=== PATIENT | male | born 1955 | race Caucasian/White ===

== ENCOUNTER 2025-02-12 10:24 | Inpatient (IN) | payer MEDICARE, SELFPAY ==
[2025-02-12] VITALS (23 sets, daily range): BP systolic 100–151; BP diastolic 54–106; PULSE 71–138; RESP 14–27; TEMP 36.4–37.1; O2SAT 91–98; BMI 41.1
--- NOTE | ~2025-02-12 | XR_ITS ---
EXAMINATION: XR chest 1V portable COMPARISON: No comparisons available. HISTORY: defib fired FINDINGS: Mild pulmonary venous congestion. No pneumothorax. Mild cardiomegaly. Mediastinal and hilar contours are within normal limits. Bony thorax no acute abnormality. Miscellaneous: Left pacemaker. Impression: Mild CHF Reviewed, dictated and finalized at location P. Impression: Mild CHF
--- NOTE | 2025-02-12 10:30 | ECG_ITS ---
Test Date: 2025-02-12 10:29:28 Measurements Intervals [place] Rate: 156 P: 0 MO: 0 QRS: -45 QRSD: 93 T: 83 QT: 274 QTc: 442 Interpretive Statements ATRIAL FIBRILLATION WITH RAPID VENTRICULAR RESPONSE WITH ABERRANT CONDUCTION OR VENTRICULAR PREMATURE COMPLEXES INFERIOR INFARCT, AGE INDETERMINATE BORDERLINE ST-T WAVE ABNORMALITY- HIGH LATERAL LEADS BASELINE ARTIFACT- I, II, AVR, AVL ABNORMAL ECG No previous ECG available for comparison Electronically Signed On 02-12-2025 10:59:02 CDT by Yandel Ulloa D.O.
[2025-02-12] MEDS: LACTATED RINGERS 1,000 ML 999 ML IV CONT (10:43)
--- NOTE | 2025-02-12 10:45 | ED.GENADULT ---
HPI - General Adult General Chief complaint: Arrhythmia/Palpitations Stated complaint: defib fire x 3?, afib RVR Time Seen by Provider: 02/12/25 10:30 History of Present Illness HPI narrative: 70-year-old male that is a poor historian presenting to the emergency department for evaluation for suspicion that his defibrillator may have fired. Patient reports that he was [place] the court [place] and walking out of the bathroom and felt 3 shocks to his neck. Patient did not fall to the ground. Patient had no loss of consciousness. Patient denies any current chest pain or shortness of breath. Patient is unsure if he has a history of AFib, patient does not think he takes any blood thinners. Patient reports he was just admitted at [facility] approximately 2 weeks ago but is unsure of why he was admitted there. Patient states he does have a prior history of an GA maybe 4 or 5 years ago and was also care for at [facility] Related Data Home Medications ?Medication ?Instructions ?Recorded ?Confirmed ?Last Taken ?Type amiodarone 200 mg tablet 200 mg PO Q24H 02/12/25 02/12/25 Unknown History apixaban 5 mg tablet (Eliquis) 5 mg PO Q12H 02/12/25 02/12/25 Unknown History atorvastatin 40 mg tablet 40 mg PO HS 02/12/25 02/12/25 Unknown History carvedilol 6.25 mg tablet 6.25 mg PO Q12H 02/12/25 02/12/25 Unknown History furosemide 20 mg tablet 20 mg PO 1700 02/12/25 02/12/25 Unknown History furosemide 40 mg tablet 40 mg PO DAILY 02/12/25 02/12/25 Unknown History glimepiride 2 mg tablet 2 mg PO DAILY 02/12/25 02/12/25 Unknown History hydralazine 10 mg tablet 10 mg PO DAILY 02/12/25 02/12/25 Unknown History isosorbide dinitrate 5 mg tablet 5 mg PO DAILY 02/12/25 02/12/25 Unknown History losartan 100 mg tablet 100 mg PO DAILY 02/12/25 02/12/25 Unknown History metformin 500 mg tablet 500 mg PO BID 02/12/25 02/12/25 Unknown History potassium chloride 20 mEq 20 meq PO DAILY 02/12/25 02/12/25 Unknown History tablet,extended release(part/cryst) Allergies Allergy/AdvReac Type Severity Reaction Status Date / Time No Known Allergies Allergy Verified 02/12/25 17:17 Review of Systems Review of Systems: All systems reviewed & are unremarkable except as noted in HPI and below PMFSH Past Medical History Medical History DM2 (diabetes mellitus, type 2) Sleep apnea HLD (hyperlipidemia) HTN (hypertension) Right leg DVT Presence of cardiac defibrillator Biotronik Myocardial infarction Surgical History Surgical History History of orthopedic surgery ORIF, LLE Family History Family History Sibling Acute myocardial infarction Father Chronic obstructive pulmonary disease Cancer Mother Diabetes mellitus Social History Social History Smoking status: Never smoker Second hand tobacco smoke exposure: Yes Alcohol intake: never Substance use type: marijuana Lack of Transportation: No Lack of Food: Often True Current Housing: I Have Housing Concerned About Future Housing: No Difficulty Paying Gas/Electric Bills: No Difficulty Paying for Meds: No Currently Unemployed: No Education: High School Diploma/GED Difficulty w/ Childcare or Family Care: No Spiritual care concerns: No Exam Narrative: APPEARANCE: Well appearing, no pain, no distress, well-nourished. HEAD: normocephalic, atraumatic. EYES: PERRLA/EOMI, conjunctivae clear. NOSE: Normal no drainage EARS:TMS clear with good light reflex. THROAT: Pharynx clear, no exudate. NECK: Supple. No adenopathy, no masses. RESPIRATORY: Airway patent, respirations nonlabored. Clear to auscultation bilaterally, no rales, rhonchi, wheezing. CARDIOVASCULAR: AFib with RVR ABDOMINAL: Soft, nontender, nondistended, normal bowel sounds MUSCULOSKELETAL: Moves all extremities. Lower extremity edema NEURO: Alert. Cranial nerves II through XII intact. Grossly intact SKIN: Warm, dry. Normal Color Course Vital Signs Vital signs: Vital Signs Temperature 98.7 F 02/12/25 10:23 Pulse Rate 138 H 02/12/25 10:23 Respiratory Rate 16 02/12/25 10:23 Blood Pressure 151/101 H 02/12/25 10:23 Pulse Oximetry 94 02/12/25 10:23 Oxygen Delivery Room Air 02/12/25 10:23 Temperature 98.0 F 02/12/25 17:17 Pulse Rate 106 H 02/12/25 18:00 Respiratory Rate 16 02/12/25 17:17 Blood Pressure 146/89 H 02/12/25 17:17 Pulse Oximetry 98 02/12/25 17:17 Oxygen Delivery Room Air 02/12/25 10:23 Medical Decision Making MDM Narrative Medical decision making narrative: 70-year-old male present to the emergency department for evaluation after his defibrillator fired 3 times. Patient does have a Biotronik defibrillator and it was interrogated and showed that his heart rate was AFib with RVR and a rate of 220 this is above his standard threshold of 214 and patient did receive 3 shocks. Interrogation showed no evidence of VFib or Vtach. Upon arrival emergency department patient heart rates in the 140s. Patient was treated with a dose of IV metoprolol and ultimately started on Cardizem bolus and Cardizem infusion. Patient's magnesium was low at 1.3 and he was treated with 2 g of IV Mag. Patient was a poor historian and was unaware of any medications he was taking. Patient is supposedly on amiodarone and Eliquis in addition to carvedilol and Lasix. This was discovered after receiving his meds from his pharmacy At time of re-evaluation patient states he does feel improved patient is still in AFib but is rate controlled with a rate of 89 while on Cardizem. Critical Care Procedure Note Authorized and Performed by: Zen Kapoor Total critical care time: Approximately 36 minutes Due to a high probability of clinically significant, life threatening deterioration, the patient required my highest level of preparedness to intervene emergently and I personally spent this critical care time directly and personally managing the patient. This critical care time included obtaining a history; examining the patient; pulse oximetry; ordering and review of studies; arranging urgent treatment with development of a management plan; evaluation of patient's response to treatment; frequent reassessment; and, discussions with other providers. This critical care time was performed to assess and manage the high probability of imminent, life-threatening deterioration that could result in multi-organ failure. It was exclusive of separately billable procedures and treating other patients and teaching time. Please see MDM section and the rest of the note for further information on patient assessment and treatment. Differential Diagnosis Differential Diagnosis: AFib with RVR, V-tach, VFib, tachycardia, back pain, medication noncompliance Vital Signs Vital Signs: Vital Signs Temperature 98.7 F 02/12/25 10:23 Pulse Rate 138 H 02/12/25 10:23 Respiratory Rate 16 02/12/25 10:23 Blood Pressure 151/101 H 02/12/25 10:23 Pulse Oximetry 94 02/12/25 10:23 Oxygen Delivery Room Air 02/12/25 10:23 Temperature 98.0 F 02/12/25 17:17 Pulse Rate 106 H 02/12/25 18:00 Respiratory Rate 16 02/12/25 17:17 Blood Pressure 146/89 H 02/12/25 17:17 Pulse Oximetry 98 02/12/25 17:17 Oxygen Delivery Room Air 02/12/25 10:23 Lab Data Lab results reviewed: Yes I reviewed the patient's lab results. 02/12/25 10:53 02/12/25 11:20 Labs: Lab Results 02/12/25 02/12/25 02/12/25 Range/Units 10:52 10:53 11:20 WBC 9.0 (4.5-10.0) K/mm3 RBC 4.54 L (4.6-6.20) M/mm3 Hgb 13.2 L (14.0-18.0) g/dL Hct 40.9 L (42.0-52.0) % MCV 90.1 (80-100) fl MCH 29.1 (26-34) pg MCHC 32.3 (32-36) g/dl RDW 15.0 H (11.5-14.5) % Plt Count 185 (150-375) k/mm3 MPV 10.4 (7.4-10.4) fl Immature Gran % (Auto) 0.2 (0-0.5) % Neut % (Auto) 69.8 (45.5-73.1) % Lymph % (Auto) 17.8 L (18.3-44.2) % [place] % (Auto) 8.2 (2.6-8.5) % Eos % (Auto) 3.8 (0-4.4) % Baso % (Auto) 0.2 (0.2-1.2) % Lymph # (Auto) 1.60 (0.9-3.2) K/mm3 [place] # (Auto) 0.7 H (0.1-0.6) K/mm3 Eos # (Auto) 0.3 (0-0.3) K/mm3 Baso # (Auto) 0.0 (0.0-0.1) K/mm3 Abs Immat Gran (auto) 0.02 (0.00-0.031) K/mm3 Absolute Neuts (auto) 6.3 (1.3-6.7) K/mm3 Absolute Nucleated RBC 0.000 (0.0-0.012) K/mm3 Nucleated RBC % 0.0 (0.0-0.2) % PT 15.3 H (11.1-14.7) Seconds INR 1.2 APTT 27.6 (22.3-36.8) Seconds Sodium 136 L (137-145) mmol/L Potassium 4.0 (3.4-5.0) mmol/L Chloride 101 (98-107) mmol/L Carbon Dioxide 27 (22-30) mmol/L Anion Gap 8 (4-12) mmol/L BUN 30 H (9-20) mg/dL Creatinine 1.23 (0.7-1.3) mg/dL Estim Creat Clear Calc 71 ml/min Estimated GFR 59 (59 - ) Glucose 142 H (65-110) mg/dL Calcium 9.2 (8.4-10.2) mg/dL Magnesium 1.3 L (1.6-2.3) mg/dL Total Bilirubin 1.2 (0.2-1.3) mg/dL AST 25 (17-59) U/L ALT 21 (6-50) U/L Alkaline Phosphatase 58 (38-126) U/L NT-Pro-B Natriuret Pep 9390 H (19.9-100) pg/mL Total Protein 7.2 (6.3-8.2) g/dL Albumin 4.1 (3.5-5.1) g/dL TSH (Reflex) 4.240 (0.465-4.68) uIU/mL Free T4 1.74 (0.78-2.19) ng/dL Total T3 1.17 (0.82-1.58) NG/ML Imaging Data Radiologist's impression: Impressions Chest X-Ray 02/12/25 10:39 Impression: Mild CHF ECG Data EKG #1: EKG Interpretation: tachycardia, atrial fibrillation, non-specific ST changes, normal QT and NL axis Critical Care Time Critical Care Time Critical Care Time: Yes Total Critical Care Time: 35 Discharge Plan Discharge Clinical Impression: Atrial fibrillation with rapid ventricular response Patient Disposition: Still a Patient Condition: Serious
[2025-02-12] MEDS: METOPROLOL TARTRATE INJ 5 MG/5 ML VIAL IV PUSH (10:49)
[2025-02-12 10:57] LABS: Hematocrit 40.9 % (42.0-52.0); Hemoglobin 13.2 g/dL (14.0-18.0); Immature Granulocyte Percent A 0.2 % (0-0.5); Lymphocytes Absolute Auto 1.60 K/mm3 (0.9-3.2); Mean Corpuscular HGB Conc 32.3 g/dl (32-36); Mean Corpuscular Hemoglobin 29.1 pg (26-34); Mean Corpuscular Volume 90.1 fl (80-100); Nucleated Red Blood Cells Absolute Auto 0.000 K/mm3 (0.0-0.012); Nucleated Red Blood Cells Perc 0.0 % (0.0-0.2); Platelet Count Result 185 k/mm3 (150-375); Red Blood Count 4.54 M/mm3 (4.6-6.20); White Blood Count 9.0 K/mm3 (4.5-10.0)
--- NOTE | 2025-02-12 11:01 | PC.NURSE ---
Medical records request faxed to [facility] nursing HS, John.
[2025-02-12 11:12] LABS: INR 1.2; Prothrombin Time 15.3 Seconds (11.1-14.7)
[2025-02-12 11:13] LABS: Partial Thromboplastin Time 27.6 Seconds (22.3-36.8)
[2025-02-12 11:44] LABS: Thyroid Stimulating Hormone Reflex 4.240 uIU/mL (0.465-4.68)
[2025-02-12 11:48] LABS: Alanine Aminotransferase 21 U/L (6-50); Albumin Level 4.1 g/dL (3.5-5.1); Alkaline Phosphatase 58 U/L (38-126); Anion Gap 8 mmol/L (4-12); Aspartate Amino Transferase 25 U/L (17-59); Bilirubin,Total 1.2 mg/dL (0.2-1.3); Blood Urea Nitrogen 30 mg/dL (9-20); Calcium 9.2 mg/dL (8.4-10.2); Carbon Dioxide 27 mmol/L (22-30); Chloride 101 mmol/L (98-107); Estimated CRCL calculation 71 ml/min; Estimated Glomerular Filt Rate 59; Glucose 142 mg/dL (65-110); Magnesium 1.3 mg/dL (1.6-2.3); Potassium 4.0 mmol/L (3.4-5.0); Sodium 136 mmol/L (137-145); Total Protein 7.2 g/dL (6.3-8.2)
[2025-02-12 11:53] LABS: NT Pro B Type Natriuretic Pept 9390 pg/mL (19.9-100)
[2025-02-12] MEDS: MAGNESIUM SULF 2 GM/WATER 50ML 2 GM/50 ML BAG IVPB (12:09)
[2025-02-12] MEDS: FUROSEMIDE INJ 40 MG/4 ML VIAL IV PUSH (12:10)
[2025-02-12 12:14] LABS: Free T4 Free Thyroxine Reflex 1.74 ng/dL (0.78-2.19)
--- NOTE | 2025-02-12 12:55 | PC.NURSE ---
Medical records have not been received from [facility]. left for HS to call back.
[2025-02-12 12:58] LABS: Total Triiodothyronine (T3) 1.17 NG/ML (0.82-1.58)
[2025-02-12] MEDS: dilTIAZem 100 MG/100 ML 100 MG/100 ML BAG IV CONT (13:11)
--- NOTE | 2025-02-12 14:51 | PC.NURSE ---
Nurse at Dr. Chowdary (patient's PCP) able to see an uploaded external document from a tractor trailer truck driver at [facility] ([phone]). Document was a Biotronik device check.
--- NOTE | 2025-02-12 17:15 | ADMGEN ---
Addendum entered by Tamara Luu RN 02/12/25 18:03: Report received from YOSEF Nolen @ [id number] Original Note: This patient, Austin Dominguez, was admitted to IMU Room 205-02. Patient/family oriented to hospital policies and general routines including ID bracelet, bed and alarms, visiting hours, pain management, procedures, bathroom and other care routines, personal items, smoking policy, room service/diet, and visiting hours. Information on how to activate the Rapid Response Team has been discussed. Patient/Family are encouraged to report perceived risks to care and to ask questions if they do not understand what they are told or what they should do.
--- NOTE | 2025-02-12 17:39 | P.HP_ITS ---
H&P: HPI History of Present Illness Date/Time: 02/12/25 17:39 Chief Complaint: Pop in Chest Narrative: 70 y/o M with PMH of cardiac defibrillator, myocardial infarction, and dysrhythmia but has here with suspected firing of defibrillator. The patient presents here via EMS on 02/12 for further evaluation of possible dysrhythmia at and suspected firing of defibrillator. The patient reports he was in the bathroom when he felt a pop/shock in his chest x3. He denies any accompanying loss of consciousness, chest pain, shortness of breath, palpitations, nausea, vomiting, diaphoresis or subsequent fall (son was able to help him before he fell). He reports he has a history of AFib and discharge of his defibrillator. Believes it last discharged 2 years ago. Patient reports he is on anticoagulation. Does not believe he follows with a healthcare management consultant regularly. He does report he was recently admitted to [facility] approximately 2-3 weeks ago, however he is unsure why he was admitted. He does report a cardiac history significant for myocardial infarction approximately 4-5 years ago, treated at [facility]. Patient is very poor historian, no further history available. Initial VS at presentation: 98.7? F, HR 138, RR 16, 151/101, and 94% on RA. ED workup showed: No leukocytosis, hemoglobin 13.2, INR 1.2, creatinine 1.23 and GFR 59, glucose 142, magnesium 1.3, BNP 9390, TSH within normal limits. No previous lab work available for comparison. CXR showed mild CHF. EKG showed AFib with RVR with a brain conduction or ventricular premature complexes, inferior infarct age indeterminate, borderline ST-T with abnormality high lateral leads. Review of Systems Review of Systems: All systems reviewed & are unremarkable except as noted in HPI and below PMFSH Past Medical History Medical History DM2 (diabetes mellitus, type 2) Sleep apnea HLD (hyperlipidemia) HTN (hypertension) Right leg DVT Presence of cardiac defibrillator Biotronik Myocardial infarction Surgical History Surgical History History of orthopedic surgery ORIF, LLE Family History Family History Sibling Acute myocardial infarction Father Chronic obstructive pulmonary disease Cancer Mother Diabetes mellitus Social History Social History Smoking status: Never smoker Second hand tobacco smoke exposure: Yes Alcohol intake: never Substance use type: marijuana Lack of Transportation: No Lack of Food: Often True Current Housing: I Have Housing Concerned About Future Housing: No Difficulty Paying Gas/Electric Bills: No Difficulty Paying for Meds: No Currently Unemployed: No Education: High School Diploma/GED Difficulty w/ Childcare or Family Care: No Spiritual care concerns: No Meds Home Medications and Allergies Home Medications ?Medication ?Instructions ?Recorded ?Confirmed ?Type amiodarone 200 mg tablet 200 mg PO Q24H 02/12/2501/17 History apixaban 5 mg tablet (Eliquis) 5 mg PO Q12H 02/12/25 1 History atorvastatin 40 mg tablet 40 mg PO HS 02/12/25 5 History carvedilol 6.25 mg tablet 6.25 mg PO Q12H 02/12/25 History furosemide 20 mg tablet 20 mg PO 1700 02/12/2502/12 History furosemide 40 mg tablet 40 mg PO DAILY 02/12/2501/17 History glimepiride 2 mg tablet 2 mg PO DAILY 02/12/2502/12 History hydralazine 10 mg tablet 10 mg PO DAILY 02/12/2501/17 History isosorbide dinitrate 5 mg tablet 5 mg PO DAILY 5 02/12/25 History losartan 100 mg tablet 100 mg PO DAILY 02/12/25 History metformin 500 mg tablet 500 mg PO BID 02/12/2502/12 History potassium chloride 20 mEq 20 meq PO DAILY 02/12/25 History tablet,extended release(part/cryst) Allergies Allergy/AdvReac Type Severity Reaction Status Date / Time No Known Allergies Allergy Verified 02/12/25 17:17 Vital Signs Vital Signs - 24 hr 02/12/25 10:23 02/12/25 10:49 02/12/25 10:50 Temperature 98.7 F Pulse Rate 138 H 130 H 131 H Respiratory Rate 16 23 H Blood Pressure 151/101 H 115/95 H Pulse Oximetry 94 91 Oxygen Delivery Room Air 02/12/25 11:01 02/12/25 11:16 02/12/25 11:22 Temperature Pulse Rate 122 H 113 H 124 H Respiratory Rate 19 22 H 21 H Blood Pressure 131/99 H 118/102 H 132/102 H Pulse Oximetry 95 Oxygen Delivery 02/12/25 11:47 02/12/25 12:01 02/12/25 12:46 Temperature Pulse Rate 123 H 118 H 120 H Respiratory Rate 25 H 19 19 Blood Pressure 119/93 H 141/98 H 140/102 H Pulse Oximetry 93 94 Oxygen Delivery 02/12/25 13:11 02/12/25 13:45 02/12/25 13:46 Temperature Pulse Rate 129 H 93 91 Respiratory Rate 18 27 H Blood Pressure 138/106 H 122/88 Pulse Oximetry 94 97 Oxygen Delivery 02/12/25 15:40 02/12/25 17:17 Temperature 98.0 F Pulse Rate 93 98 Respiratory Rate 24 H 16 Blood Pressure 136/72 146/89 H Pulse Oximetry 98 Oxygen Delivery Exam Const: General: comfortable and no acute distress Other: , male, older appearing than stated age, obese body habitus HENMT: Face/Nose/Sinus: Normal nares present Mouth: Yes moist mucous membranes Eyes: General: appearance normal, both eyes and all related structures Sclera: sclerae normal Pupils: Equal, round and reactive pupils present EOM: EOMs intact bilaterally Resp: Auscultation: clear to auscultation bilaterally Other: Mild tachypnea without accessory muscle use, worsens with conversation. Cardio: Rate: regular rate Rhythm: abnormal rhythm Other: Irregular rhythm consistent with AFib, no appreciable murmur. GI: Other: Abdomen soft, nondistended, nontender. Normoactive bowel sounds in all quadrants. Skin: Other: Mild erythema to the right distal calf/ankle. Associated heat when compared to the left lower extremity. Extrem: General: normal exam except as noted (See skin exam) Other: +1 nonpitting edema to bilateral lower e xtremities, symmetric Psych: Mental Status: mental status grossly normal Affect: normal affect Other: Fair insight and judgment H&P: Results Labs Labs: Short CBC 02/12/25 Range/Units 10:53 WBC 9.0 (4.5-10.0) K/mm3 Hgb 13.2 L (14.0-18.0) g/dL Hct 40.9 L (42.0-52.0) % Plt Count 185 (150-375) k/mm3 [facility] 02/12/25 11:20 Sodium 136 L Potassium 4.0 Chloride 101 Carbon Dioxide 27 BUN 30 H Creatinine 1.23 Glucose 142 H Calcium 9.2 Liver Function 02/12/25 Range/Units 11:20 Total Bilirubin 1.2 (0.2-1.3) mg/dL AST 25 (17-59) U/L ALT 21 (6-50) U/L Alkaline Phosphatase 58 (38-126) U/L Albumin 4.1 (3.5-5.1) g/dL Assessment and Plan Assessment and plan (1) Atrial fibrillation with rapid ventricular response: Code(s): I48.91 - Unspecified atrial fibrillation Status: Acute Assessment and Plan: Patient has reported history of atrial fibrillation on Coreg, amiodarone, and Eliquis. Here for further evaluation after he felt popping/shock sensation in his chest x3 this morning. Defibrillator (YottaaroniEvgen) interrogated in the emergency department. Report showed that the patient was in AFib with RVR, rate 220. Patient has standard threshold of 214. Three shocks were administered. Did not show any evidence of VFib or V-tach. - home amiodarone held, Coreg continued. Given metoprolol IV in the ED with no response. Has been subsequently started on a Cardizem drip with IV push x1. Heart rate improved from the 130s to 90s. Will continue diltiazem gtt at this time. - TSH evaluated in the emergency department, within normal limits - patient reports recent admission at [facility] 2 weeks ago, awaiting records as he believes he was admitted for cardiac issues. If no echo performed there, will need during this admission. - magnesium mildly depleted at 1.3 upon admission, given 2G IVPB. Continue to trend. - cardiology consulted, awaiting recs - telemetry monitoring (2) Defibrillator discharge: Code(s): Z45.02 - Encounter for adjustment and management of automatic implantable cardiac defibrillator Status: Acute Assessment and Plan: Defibrillator (Biotronik) interrogated in the emergency department on 02/12. Patient was in AFib RVR with a rate around 220 which is above his threshold of 214. Three shocks were administered. - cardiology consulted - telemetry monitoring (3) Cellulitis of right leg: Code(s): L03.115 - Cellulitis of right lower limb Status: Acute Assessment and Plan: Erythema noted to the distal right lower extremity at the distal calf/ankle. No asymmetric swelling appreciated. Patient is on anticoagulation decreasing concern for DVT. - start cefazolin (4) DM2 (diabetes mellitus, type 2): Qualifiers: Diabetes mellitus complication status: without complication Diabetes mellitus marine oil terminal superintendent insulin use: without mcc use Qualified Code(s): E11.9 - Type 2 diabetes mellitus without complications Code(s): E11.9 - Type 2 diabetes mellitus without complications Status: Chronic Assessment and Plan: History of type 2 diabetes not on insulin. Initial glucose upon admission was 142. - hypoglycemia protocol - POC blood glucose ACHS - home medication: Hold metformin in case of need for contrast. Continue glimepiride. - correct regimen ordered - high dose TIDWM, based off BMI - A1C ordered, none on file (5) HTN (hypertension): Qualifiers: Hypertension type: primary hypertension Qualified Code(s): I10 - Essential (primary) hypertension Code(s): I10 - Essential (primary) hypertension Status: Chronic Assessment and Plan: - chronic, currently 146/89, stable. - continue home medications: Losartan, Imdur, hydralazine, Coreg - monitor (6) HLD (hyperlipidemia): Qualifiers: Hyperlipidemia type: unspecified Qualified Code(s): E78.5 - Hyperlipidemia, unspecified Code(s): E78.5 - Hyperlipidemia, unspecified Status: Chronic Assessment and Plan: - continue atorvastatin 40 mg HS Plan Diet: Heart healthy GI Prophylaxis: N/a DVT Prophylaxis: Eliquis IV fluids: None Lines/Tubes: Peripheral IV Code Status: Full code Quality VTE Prophylaxis VTE prophylaxis: pharmacologic ordered Hospitalist [facility] Advance Care Plan I have confirmed that the patient's Advanced Care Plan is present, code status is documented, or surrogate decision maker is listed in patient medical record.: Yes Medication Reconciliation I have utilized all available resources to obtain, update and review the pat ients current medications (includes all prescriptions, OTC, herbals, cannabis, and nutritional supplements).: Yes
--- NOTE | 2025-02-12 18:59 | PC.NURSE ---
On 02/12/25, the student, [ Nilo oLng], provided care and completed [facility] documentation on this patient. I have reviewed the student's documentation and agree with the findings.
[2025-02-12] MEDS: FUROSEMIDE 20 MG TABLET PO (19:05)
[2025-02-12] MEDS: APIXABAN 5 MG TABLET PO (20:26)
[2025-02-12] MEDS: ATORVASTATIN 40 MG TABLET PO (20:26)
[2025-02-12] MEDS: ceFAZolin 1 GM in SODIUM CHLORIDE 0.9% IV 50 ML 100 ML IVPB (22:49)
[2025-02-13] VITALS (23 sets, daily range): BP systolic 99–137; BP diastolic 53–87; PULSE 70–89; RESP 14–22; TEMP 36.6–37.1; O2SAT 95–98
[2025-02-13 04:15] LABS: Hematocrit 36.8 % (42.0-52.0); Hemoglobin 11.8 g/dL (14.0-18.0); Immature Granulocyte Percent A 0.2 % (0-0.5); Lymphocytes Absolute Auto 1.54 K/mm3 (0.9-3.2); Mean Corpuscular HGB Conc 32.1 g/dl (32-36); Mean Corpuscular Hemoglobin 29.1 pg (26-34); Mean Corpuscular Volume 90.6 fl (80-100); Nucleated Red Blood Cells Absolute Auto 0.000 K/mm3 (0.0-0.012); Nucleated Red Blood Cells Perc 0.0 % (0.0-0.2); Platelet Count Result 163 k/mm3 (150-375); Red Blood Count 4.06 M/mm3 (4.6-6.20); White Blood Count 6.3 K/mm3 (4.5-10.0)
[2025-02-13 04:26] LABS: Hemoglobin A1C 6.4 % (<5.7)
[2025-02-13 04:30] LABS: Anion Gap 10 mmol/L (4-12); Blood Urea Nitrogen 29 mg/dL (9-20); Calcium 8.8 mg/dL (8.4-10.2); Carbon Dioxide 28 mmol/L (22-30); Chloride 98 mmol/L (98-107); Estimated CRCL calculation 62 ml/min; Estimated Glomerular Filt Rate 51; Glucose 127 mg/dL (65-110); Magnesium 1.7 mg/dL (1.6-2.3); Potassium 4.0 mmol/L (3.4-5.0); Sodium 136 mmol/L (137-145)
[2025-02-13] MEDS: ceFAZolin 1 GM in SODIUM CHLORIDE 0.9% IV 50 ML 100 ML IVPB ×3 (05:05→22:00)
[2025-02-13] MEDS: dilTIAZem 100 MG/100 ML 100 MG/100 ML BAG IV CONT (05:06)
[2025-02-13] MEDS: GLIMEPIRIDE 2 MG TABLET PO (08:16)
[2025-02-13] MEDS: FUROSEMIDE 40 MG TABLET PO (08:16)
[2025-02-13] MEDS: APIXABAN 5 MG TABLET PO ×2 (08:16→20:34)
[2025-02-13] MEDS: ISOSORBIDE DINITRATE 5 MG TABLET PO (08:16)
[2025-02-13] MEDS: POTASSIUM CHLORIDE 20 MEQ ER TABLET PO (08:16)
[2025-02-13] MEDS: LOSARTAN POTASSIUM 100 MG TABLET PO (08:17)
--- NOTE | 2025-02-13 09:15 | P.CONCA_ITS ---
Assessment and Plan Assessment and plan (1) Atrial fibrillation with rapid ventricular response: Code(s): I48.91 - Unspecified atrial fibrillation Status: Acute Assessment and Plan: * noted to be in afib with rvr rate of 156 bpm on arrival to ER * this appears to be paroxysmal in nature based on device interrogation * patient was seen at OSH and recently started on amiodarone and Eliquis, but non-compliant with medications * he was started on IV cardizem and rate has improved. * will stop his cardizem drip and increase his home coreg dose from 6.25 mg BID to 12.5 mg BID * His Mag was 1.3 on admission and is currently being replaced and would replete to keep >2 * His potassium in wnl * TSH wnl * Will plan to reload with IV amiodarone while in the hospital and will need to stress compliance with medications at discharge * may benefit from OP EPS consult (2) Defibrillator discharge: Code(s): Z45.02 - Encounter for adjustment and management of automatic implantable cardiac defibrillator Status: Acute Assessment and Plan: * has single chamber biotronik ICD in place * appears he was defibrillated for afib with rvr * will review his device settings with Dr. Sosa. * Appears this is not the first time patient has been shocked for atrial fibrillation * as mentioned earlier may benefit from EPS consult and upgraded device (3) HTN (hypertension): Qualifiers: Hypertension type: primary hypertension Qualified Code(s): I10 - Essential (primary) hypertension Code(s): I10 - Essential (primary) hypertension Status: Chronic Assessment and Plan: * Blood pressure with reasonable control at this time * continue coreg 12.5 mg BID and losartan 100 mg daily (4) HLD (hyperlipidemia): Qualifiers: Hyperlipidemia type: unspecified Qualified Code(s): E78.5 - Hyperlipidemia, unspecified Code(s): E78.5 - Hyperlipidemia, unspecified Status: Chronic Assessment and Plan: * continue atorvastatin 40 mg daily (5) DM2 (diabetes mellitus, type 2): Qualifiers: Diabetes mellitus complication status: without complication Diabetes mellitus correction insulin use: without correction use Qualified Code(s): E11.9 - Type 2 diabetes mellitus without complications Code(s): E11.9 - Type 2 diabetes mellitus without complications Status: Chronic Assessment and Plan: * glycemic control as per primary team (6) Cellulitis of right leg: Code(s): L03.115 - Cellulitis of right lower limb Status: Acute Assessment and Plan: * started on abx as per primary team * concern discoloration may be secondary to venous stasis changes as well (7) DVT (deep venous thrombosis): Code(s): I82.409 - Acute embolism and thrombosis of unspecified deep veins of unspecified lower extremity Status: Acute Assessment and Plan: * per chart review noted to have acute DVT of rt SFA/popliteal vein on recent visit to [facility] * continue Eliquis 5 mg BID for AC (8) ARIANA (obstructive sleep apnea): Code(s): G47.33 - Obstructive sleep apnea (adult) (pediatric) Status: Acute Assessment and Plan: * needs compliance with CPAP (9) Cardiomyopathy: Code(s): I42.9 - Cardiomyopathy, unspecified Status: Acute Assessment and Plan: * EF of 40% per echo 02/02/25 at [facility] * this is NICMP as had [facility] in 2023 with no CAD noted * continue coreg 12.5mg BID, losartan 100 mg daily and lasix 40 mg daily * monitor closely for any volume overload * has Biotronik ICD in place History of Present Illness History of Present Illness Consult date/time: 02/13/25 09:15 Requesting physician: Kandace Pittman APRN Consult reason: atrial fibrillation Reason For Visit: afib with rvr Narrative: Austin Dominguez is a 70 y.o. male with a PMH of atrial fibrillation, cardiomyopathy s/p ICD, DVT, DM, ARIANA, HTN and obesity who presented to the ER after being shocked by his ICD. Patient reports he was at the court house with his son and went into the restroom. He states he suddenly felt dizzy and as if he was going to pass out. He had his son and security lower him to the ground. He was shocked by his ICD at that time, but patient does not recall that. He denies any chest pain, shortness of breath, or palpitations prior. It appears he has had similar episodes and was recently at [facility] where he was started on amiodarone and Eliquis. Patient admits he is not compliant with medications and misses them a few times a week. He also reports pain and redness in the RLE and appears he had thrombus in the Rt SFA/popliteal vein on admission at [facility]. Review of Systems 2 Review of Systems: All systems reviewed & are unremarkable except as noted in HPI and below [facility] Past Medical History Medical History DM2 (diabetes mellitus, type 2) Sleep apnea HLD (hyperlipidemia) HTN (hypertension) Right leg DVT Presence of cardiac defibrillator Biotronik Myocardial infarction Surgical History Surgical History History of orthopedic surgery ORIF, LLE Family History Family History Sibling Acute myocardial infarction Father Chronic obstructive pulmonary disease Cancer Mother Diabetes mellitus Social History Social History Smoking status: Never smoker Second hand tobacco smoke exposure: Yes Alcohol intake: never Substance use type: marijuana Lack of Transportation: No Lack of Food: Often True Current Housing: I Have Housing Concerned About Future Housing: No Difficulty Paying Gas/Electric Bills: No Difficulty Paying for Meds: No Currently Unemployed: No Education: High School Diploma/GED Difficulty w/ Childcare or Family Care: No Spiritual care concerns: No Meds Home Medications and Allergies Home Medications ?Medication ?Instructions ?Recorded ?Confirmed ?Type amiodarone 200 mg tablet 200 mg PO Q24H 02/12/2501/17 History apixaban 5 mg tablet (Eliquis) 5 mg PO Q12H 02/12/25 1 History atorvastatin 40 mg tablet 40 mg PO HS 02/12/25 5 History carvedilol 6.25 mg tablet 6.25 mg PO Q12H 02/12/25 History furosemide 20 mg tablet 20 mg PO 1700 02/12/2502/12 History furosemide 40 mg tablet 40 mg PO DAILY 02/12/2501/17 History glimepiride 2 mg tablet 2 mg PO DAILY 02/12/2502/12 History hydralazine 10 mg tablet 10 mg PO DAILY 02/12/2501/1725 History isosorbide dinitrate 5 mg tablet 5 mg PO DAILY 5 02/12/25 History losartan 100 mg tablet 100 mg PO DAILY 02/12/25 History metformin 500 mg tablet 500 mg PO BID 02/12/2502/12 History potassium chloride 20 mEq 20 meq PO DAILY 02/12/25 History tablet,extended release(part/cryst) Allergies Allergy/AdvReac Type Severity Reaction Status Date / Time No Known Allergies Allergy Verified 02/12/25 17:17 Vital Signs Vital Signs - 24 hr 02/12/25 10:23 02/12/25 10:49 02/12/25 10:50 Temperature 37.1 C Pulse Rate 138 H 130 H 131 H Respiratory Rate 16 23 H Blood Pressure 151/101 H 115/95 H Pulse Oximetry 94 91 Oxygen Delivery Room Air 02/12/25 11:01 02/12/25 11:16 02/12/25 11:22 Temperature Pulse Rate 122 H 113 H 124 H Respiratory Rate 19 22 H 21 H Blood Pressure 131/99 H 118/102 H 132/102 H Pulse Oximetry 95 Oxygen Delivery 02/12/25 11:47 02/12/25 12:01 02/12/25 12:46 Temperature Pulse Rate 123 H 118 H 120 H Respiratory Rate 25 H 19 19 Blood Pressure 119/93 H 141/98 H 140/102 H Pulse Oximetry 93 94 Oxygen Delivery 02/12/25 13:11 02/12/25 13:45 02/12/25 13:46 Temperature Pulse Rate 129 H 93 91 Respiratory Rate 18 27 H Blood Pressure 138/106 H 122/88 Pulse Oximetry 94 97 Oxygen Delivery 02/12/25 15:40 02/12/25 17:04 02/12/25 17:17 Temperature 36.7 C Pulse Rate 93 101 H 98 Respiratory Rate 24 H 16 Blood Pressure 136/72 146/89 H Pulse Oximetry 98 Oxygen Delivery 02/12/25 18:00 02/12/25 18:13 02/12/25 18:15 Temperature Pulse Rate 106 H 90 90 Respiratory Rate Blood Pressure 134/54 L 134/54 L Pulse Oximetry Oxygen Delivery 02/12/25 20:00 02/12/25 20:00 02/12/25 20:00 Temperature 36.6 C Pulse Rate 80 84 84 Respiratory Rate 14 14 Blood Pressure 122/76 Pulse Oximetry 98 98 Oxygen Delivery Room Air 02/12/25 20:00 02/12/25 20:27 02/12/25 21:42 Temperature Pulse Rate 84 84 84 Respiratory Rate 14 Blood Pressure 122/76 130/89 Pulse Oximetry 96 Oxygen Delivery 02/12/25 22:00 02/12/25 22:00 02/12/25 23:56 Temperature 36.4 C Pulse Rate 84 84 71 Respiratory Rate 16 Blood Pressure 130/89 100/63 Pulse Oximetry 96 Oxygen Delivery 02/13/25 00:00 02/13/25 00:00 02/13/25 00:00 Temperature Pulse Rate 71 71 71 Respiratory Rate 16 Blood Pressure 100/63 Pulse Oximetry 96 Oxygen Delivery Room Air 02/13/25 01:45 02/13/25 02:00 02/13/25 02:00 Temperature Pulse Rate 78 78 78 Respiratory Rate 16 Blood Pressure 120/79 120/79 Pulse Oximetry 98 Oxygen Delivery 02/13/25 04:00 02/13/25 04:00 02/13/25 04:00 Temperature 36.6 C Pulse Rate 78 78 76 Respiratory Rate 16 16 Blood Pressure 107/75 Pulse Oximetry 98 95 Oxygen Delivery Room Air 02/13/25 05:06 02/13/25 05:53 02/13/25 06:00 Temperature Pulse Rate 79 74 74 Respiratory Rate 16 Blood Pressure 107/75 114/83 Pulse Oximetry 95 Oxygen Delivery 02/13/25 06:00 02/13/25 08:00 02/13/25 08:00 Temperature 36.6 C Pulse Rate 74 77 78 Respiratory Rate 20 Blood Pressure 114/83 125/86 125/86 Pulse Oximetry 98 Oxygen Delivery 02/13/25 08:17 02/13/25 08:23 Temperature Pulse Rate 82 Respiratory Rate Blood Pressure Pulse Oximetry 97 Oxygen Delivery Room Air Results Labs and Meds 02/13/25 03:53 02/13/25 03:53 Lab results: Cardiac Enzymes 02/12/25 Range/Units 11:20 AST 25 (17-59) U/L Coagulation 02/12/25 Range/Units 10:52 PT 15.3 H (11.1-14.7) Seconds APTT 27.6 (22.3-36.8) Seconds CBC 02/12/25 02/13/25 Range/Units 10:53 03:53 WBC 9.0 6.3 (4.5-10.0) K/mm3 RBC 4.54 L 4.06 L (4.6-6.20) M/mm3 Hgb 13.2 L 11.8 L (14.0-18.0) g/dL Hct 40.9 L 36.8 L (42.0-52.0) % Plt Count 185 163 (150-375) k/mm3 Lymph # (Auto) 1.60 1.54 (0.9-3.2) K/mm3 [place] # (Auto) 0.7 H 0.8 H (0.1-0.6) K/mm3 Eos # (Auto) 0.3 0.3 (0-0.3) K/mm3 Baso # (Auto) 0.0 0.0 (0.0-0.1) K/mm3 Comprehensive Metabolic Panel 02/12/25 02/13/25 Range/Units 11:20 03:53 Sodium 136 L 136 L (137-145) mmol/L Potassium 4.0 4.0 (3.4-5.0) mmol/L Chloride 101 98 (98-107) mmol/L Carbon Dioxide 27 28 (22-30) mmol/L BUN 30 H 29 H (9-20) mg/dL Creatinine 1.23 1.39 H (0.7-1.3) mg/dL Glucose 142 H 127 H (65-110) mg/dL Calcium 9.2 8.8 (8.4-10.2) mg/dL AST 25 (17-59) U/L ALT 21 (6-50) U/L Alkaline Phosphatase 58 (38-126) U/L Total Protein 7.2 (6.3-8.2) g/dL Albumin 4.1 (3.5-5.1) g/dL Intake and Output 02/12/25 02/13/25 02/13/25 23:59 07:59 15:59 Intake Total 212.1 74.5 250 Output Total 325 275 Balance -112.9 -200.5 250 Intake: IV 94.1 74.5 10 dilTIAZem 100 MG/100 ML 100 mg 44.1 24.5 10 In 100 ml @ 5 MG/HR 5 mls/hr IV CONT .Q20H [facility] Rx#:[id number] ceFAZolin 1 gm In Sodium 50 50 Chloride 0.9% IV 50 ml @ 100 mls/hr IVPB Q8H [facility] Rx#: [id number] Oral 118 240 Output: Urine 325 275 Other: Number of Bowel Movements Today 1 Patient Weight 02/13/25 23:59 Weight 130.5 kg Imaging and Cardiology Echo: report reviewed (02/02/25-EF of 40% with mild LV systolic dysfunction, mild RV hypokinesis) Cardiac cath: report reviewed (01/13/24-no angiographic CAD ) EKG results: image reviewed EKG Interpretation EKG shows: atrial fibrillation (with RVR rate of 156 bpm and no acute ST/T wave changes )
[2025-02-13] MEDS: MAGNESIUM SULF 2 GM/WATER 50ML 2 GM/50 ML BAG IVPB (09:37)
--- NOTE | 2025-02-13 13:40 | PM.IMPN ---
Progress Note: A&P Assessment and Plan (1) Atrial fibrillation with rapid ventricular response: Code(s): I48.91 - Unspecified atrial fibrillation Status: Acute Assessment and Plan: Patient noted he was shocked by his Defibrillator, interrogation in the ER showed Afib RVR s/p cardizem infusion Coreg 12.5 bid, IV Amiodarone loading per cardiology Magnesium replaced, TSH wnl Cardiology recommending outpatinet EP consult cardiology following (2) Defibrillator discharge: Code(s): Z45.02 - Encounter for adjustment and management of automatic implantable cardiac defibrillator Status: Acute Assessment and Plan: Defibrillator (Biotronik) interrogated in the emergency department on 02/12. Patient was in AFib RVR with a rate around 220 which is above his threshold of 214. Three shocks were administered. continue above care (3) Cellulitis of right leg: Code(s): L03.115 - Cellulitis of right lower limb Status: Acute Assessment and Plan: Erythema noted to the distal right lower extremity at the distal calf/ankle. No asymmetric swelling appreciated. Patient is on anticoagulation decreasing concern for DVT. - start cefazolin monitor cultures (4) DM2 (diabetes mellitus, type 2): Qualifiers: Diabetes mellitus custodial insulin use: without custodial use Diabetes mellitus complication status: without complication Qualified Code(s): E11.9 - Type 2 diabetes mellitus without complications Code(s): E11.9 - Type 2 diabetes mellitus without complications Status: Chronic Assessment and Plan: History of type 2 diabetes not on insulin. Initial glucose upon admission was 142. - hypoglycemia protocol - POC blood glucose ACHS - home medication: Hold metformin in case of need for contrast. Continue glimepiride. - correct regimen ordered - high dose TIDWM, based off BMI - A1C ordered, none on file (5) HTN (hypertension): Qualifiers: Hypertension type: primary hypertension Qualified Code(s): I10 - Essential (primary) hypertension Code(s): I10 - Essential (primary) hypertension Status: Chronic Assessment and Plan: - chronic, currently 146/89, stable. - continue home medications: Losartan, Imdur, hydralazine, Coreg - monitor (6) HLD (hyperlipidemia): Qualifiers: Hyperlipidemia type: unspecified Qualified Code(s): E78.5 - Hyperlipidemia, unspecified Code(s): E78.5 - Hyperlipidemia, unspecified Status: Chronic Assessment and Plan: - continue atorvastatin 40 mg HS Plan Diet: Heart healthy DVT Prophylaxis: Eliquis Code Status: Full code Subjective Date/time seen: 02/13/25 13:40 Interval history: Comfortable at bedside Review of Systems Review of Systems: All systems reviewed & are unremarkable except as noted in HPI and below Exam Narrative: mild heat and erythema to the RLE near the distal calf/ankle. Swelling symmetric. tachpynea without accessory muscle use. Irregualr HR. obese. Const: General: comfortable and no acute distress Other: , male, older appearing than stated age, obese body habitus HENMT: Face/Nose/Sinus: Normal nares present Mouth: Yes moist mucous membranes Eyes: General: appearance normal, both eyes and all related structures Sclera: sclerae normal Pupils: Equal, round and reactive pupils present EOM: EOMs intact bilaterally Resp: Auscultation: clear to auscultation bilaterally Other: Mild tachypnea without accessory muscle use, worsens with conversation. Cardio: Rate: regular rate Rhythm: abnormal rhythm Other: Irregular rhythm consistent with AFib, no appreciable murmur. GI: Other: Abdomen soft, nondistended, nontender. Normoactive bowel sounds in all quadrants. Skin: Other: Mild erythema to the right distal calf/ankle. Associated heat when compared to the left lower extremity. Neuro: Cranial nerves: Yes Equal, round and reactive pupils present Extrem: General: normal exam except as noted (See skin exam) Other: +1 nonpitting edema to bilateral lower extremities, symmetric Psych: Mental Status: mental status grossly normal Affect: normal affect Other: Fair insight and judgment Objective Data Vital Signs Vital Signs: Vital Signs - 24 hr 02/12/25 13:45 02/12/25 13:46 02/12/25 15:40 Temperature Pulse Rate 93 91 93 Respiratory Rate 18 27 H 24 H Blood Pressure 122/88 136/72 Pulse Oximetry 94 97 Oxygen Delivery 02/12/25 17:04 02/12/25 17:17 02/12/25 18:00 Temperature 98.0 F Pulse Rate 101 H 98 106 H Respiratory Rate 16 Blood Pressure 146/89 H Pulse Oximetry 98 Oxygen Delivery 02/12/25 18:13 02/12/25 18:15 02/12/25 20:00 Temperature 97.8 F Pulse Rate 90 90 80 Respiratory Rate 14 Blood Pressure 134/54 L 134/54 L 122/76 Pulse Oximetry 98 Oxygen Delivery 02/12/25 20:00 02/12/25 20:00 02/12/25 20:00 Temperature Pulse Rate 84 84 84 Respiratory Rate 14 Blood Pressure 122/76 Pulse Oximetry 98 Oxygen Delivery Room Air 02/12/25 20:27 02/12/25 21:42 02/12/25 22:00 Temperature Pulse Rate 84 84 84 Respiratory Rate 14 Blood Pressure 130/89 130/89 Pulse Oximetry 96 Oxygen Delivery 02/12/25 22:00 02/12/25 23:56 02/13/25 00:00 Temperature 97.6 F Pulse Rate 84 71 71 Respiratory Rate 16 16 Blood Pressure 100/63 Pulse Oximetry 96 96 Oxygen Delivery Room Air 02/13/25 00:00 02/13/25 00:00 02/13/25 01:45 Temperature Pulse Rate 71 71 78 Respiratory Rate 16 Blood Pressure 100/63 120/79 Pulse Oximetry 98 Oxygen Delivery 02/13/25 02:00 02/13/25 02:00 02/13/25 04:00 Temperature Pulse Rate 78 78 78 Respiratory Rate 16 Blood Pressure 120/79 Pulse Oximetry 98 Oxygen Delivery Room Air 02/13/25 04:00 02/13/25 04:00 02/13/25 05:06 Temperature 97.9 F Pulse Rate 78 76 79 Respiratory Rate 16 Blood Pressure 107/75 107/75 Pulse Oximetry 95 Oxygen Delivery 02/13/25 05:53 02/13/25 06:00 02/13/25 06:00 Temperature Pulse Rate 74 74 74 Respiratory Rate 16 Blood Pressure 114/83 114/83 Pulse Oximetry 95 Oxygen Delivery 02/13/25 08:00 02/13/25 08:00 02/13/25 08:00 Temperature 97.8 F Pulse Rate 77 78 85 Respiratory Rate 20 Blood Pressure 125/86 125/86 Pulse Oximetry 98 Oxygen Delivery 02/13/25 08:17 02/13/25 08:23 02/13/25 09:35 Temperature Pulse Rate 82 82 Respiratory Rate Blood Pressure Pulse Oximetry 97 Oxygen Delivery Room Air 02/13/25 09:40 02/13/25 10:00 02/13/25 10:34 Temperature Pulse Rate 85 89 72 Respiratory Rate Blood Pressure 125/86 102/61 Pulse Oximetry Oxygen Delivery 02/13/25 12:00 02/13/25 12:00 02/13/25 12:03 Temperature 98.4 F Pulse Rate 84 71 77 Respiratory Rate 22 H Blood Pressure 99/53 L 99/53 L Pulse Oximetry 96 Oxygen Delivery Intake/Output Intake/Output: Intake & Output 02/10/25 02/11/25 02/12/25 02/13/25 23:59 23:59 23:59 23:59 Intake Total 1262.1 622.2 Output Total 1325 725 Balance -62.9 -102.8 Meds/Results Medications: Active Medications Generic Name Dose Route Start Last Admin Trade Name Freq PRN Reason Stop Dose Admin Apixaban 5 mg 02/12/25 21:00 02/13/25 08:16 Apixaban 5 Mg Tablet PO 5 mg Q12H KITA Administration Atorvastatin Calcium 40 mg 02/12/25 21:00 02/12/25 20:26 Atorvastatin 40 Mg Tablet PO 40 mg HS KITA Administration Carvedilol 12.5 mg 02/13/25 21:00 Carvedilol 12.5 Mg Tablet PO Q12HR KITA Dextrose 12.5 gm 02/12/25 17:55 Dextrose 50% 25 Gm/50 Ml Syringe IV PUSH PRN PRN Hypoglycemia Protocol Furosemide 40 mg 02/13/25 09:00 02/13/25 08:16 Furosemide 40 Mg Tablet PO 40 mg DAILY KITA Administration Furosemide 20 mg 02/12/25 18:10 02/12/25 19:05 Furosemide 20 Mg Tablet PO 20 mg 1700 KITA Administration Glimepiride 2 mg 02/13/25 09:00 02/13/25 08:16 Glimepiride 2 Mg Tablet PO 2 mg DAILY KITA Administration Glucagon 1 mg 02/12/25 17:55 Glucagon For Inj 1 Mg Vial IM PRN PRN Hypoglycemia Protocol Glucose 15 gm 02/12/25 17:55 Glucose Oral Gel 15 Gm Of Glucse In 37.5 Gm Tube PO PRN PRN Hypoglycemia Protocol Hydralazine HCl 10 mg 02/13/25 09:00 02/13/25 08:17 Hydralazine 10 Mg Tablet PO 10 mg DAILY KITA Administration Dextrose 1,000 mls @ 100 mls/hr 02/12/25 17:55 Dextrose 5% 1,000 Ml IVPB PRN PRN Hypoglycemia Protocol Cefazolin Sodium 1 gm/ Sodium 50 mls @ 100 mls/hr 02/12/25 22:00 02/13/25 05:35 Chloride IVPB Infused Q8H KITA Infusion Amiodarone HCl/Dextrose 360 mg in 200 mls @ 33.333 mls/hr 02/13/25 10:10 02/13/25 12:03 Nexterone 360 Mg/D5w 200 Ml IV CONT 02/13/25 16:09 1 mg/min .Q6H ONE 33.33 mls/hr 1 MG/MIN Infusion Amiodarone HCl/Dextrose 360 mg in 200 mls @ 16.667 mls/hr 02/13/25 16:10 Nexterone 360 Mg/D5w 200 Ml IV CONT .Q12H KITA 0.5 MG/MIN Insulin Aspart 4 - 8 units 02/13/25 08:00 02/13/25 11:23 Insulin Aspart (*Bkc) 100 Units/Ml SUB-Q Not Given TIDWM KITA Protocol Isosorbide Dinitrate 5 mg 02/13/25 09:00 02/13/25 08:16 Isosorbide Dinitrate 5 Mg Tablet PO 5 mg DAILY KITA Administration Losartan Potassium 100 mg 02/13/25 09:00 02/13/25 08:17 Losartan Potassium 100 Mg Tablet PO 100 mg DAILY KITA Administration Potassium Chloride 20 meq 02/13/25 09:00 02/13/25 08:16 Potassium Chloride 20 Meq Er Tablet PO 20 meq DAILY KITA Administration Radiology Results: ITS Impressions Chest X-Ray 02/12/25 10:39 Impression: Mild CHF Labs Labs: Laboratory Results - last 24 hr 02/12/25 02/13/25 02/13/25 20:21 03:53 07:55 WBC 6.3 RBC 4.06 L Hgb 11.8 L Hct 36.8 L MCV 90.6 MCH 29.1 MCHC 32.1 RDW 15.0 H Plt Count 163 MPV 10.3 Immature Gran % (Auto) 0.2 Neut % (Auto) 58.8 Lymph % (Auto) 24.3 [place] % (Auto) 11.8 H Eos % (Auto) 4.6 H Baso % (Auto) 0.3 Lymph # (Auto) 1.54 [place] # (Auto) 0.8 H Eos # (Auto) 0.3 Baso # (Auto) 0.0 Abs Immat Gran (auto) 0.01 Absolute Neuts (auto) 3.7 Absolute Nucleated RBC 0.000 Nucleated RBC % 0.0 Sodium 136 L Potassium 4.0 Chloride 98 Carbon Dioxide 28 Anion Gap 10 BUN 29 H Creatinine 1.39 H Estim Creat Clear Calc 62 Estimated GFR 51 L Glucose 127 H POC Capillary Glucose 105 111 H Hemoglobin A1c 6.4 H Calcium 8.8 Magnesium 1.7 02/13/25 11:21 WBC RBC Hgb Hct MCV MCH MCHC RDW Plt Count MPV Immature Gran % (Auto) Neut % (Auto) Lymph % (Auto) [place] % (Auto) Eos % (Auto) Baso % (Auto) Lymph # (Auto) [place] # (Auto) Eos # (Auto) Baso # (Auto) Abs Immat Gran (auto) Absolute Neuts (auto) Absolute Nucleated RBC Nucleated RBC % Sodium Potassium Chloride Carbon Dioxide Anion Gap BUN Creatinine Estim Creat Clear Calc Estimated GFR Glucose POC Capillary Glucose 121 H Hemoglobin A1c Calcium Magnesium Quality VTE Prophylaxis VTE prophylaxis: pharmacologic ordered
[2025-02-13] MEDS: FUROSEMIDE 20 MG TABLET PO (16:54)
[2025-02-13] MEDS: ATORVASTATIN 40 MG TABLET PO (20:34)
[2025-02-14] VITALS (14 sets, daily range): BP systolic 112–130; BP diastolic 60–94; PULSE 72–90; RESP 20; TEMP 36.5–36.8; O2SAT 94–98
[2025-02-14 03:59] LABS: Hematocrit 37.5 % (42.0-52.0); Hemoglobin 12.0 g/dL (14.0-18.0); Immature Granulocyte Percent A 0.0 % (0-0.5); Lymphocytes Absolute Auto 1.23 K/mm3 (0.9-3.2); Mean Corpuscular HGB Conc 32.0 g/dl (32-36); Mean Corpuscular Hemoglobin 29.1 pg (26-34); Mean Corpuscular Volume 90.8 fl (80-100); Nucleated Red Blood Cells Absolute Auto 0.000 K/mm3 (0.0-0.012); Nucleated Red Blood Cells Perc 0.0 % (0.0-0.2); Platelet Count Result 146 k/mm3 (150-375); Red Blood Count 4.13 M/mm3 (4.6-6.20); White Blood Count 5.4 K/mm3 (4.5-10.0)
[2025-02-14 04:21] LABS: Alanine Aminotransferase 21 U/L (6-50); Albumin Level 3.9 g/dL (3.5-5.1); Alkaline Phosphatase 55 U/L (38-126); Anion Gap 7 mmol/L (4-12); Aspartate Amino Transferase 25 U/L (17-59); Bilirubin,Total 0.8 mg/dL (0.2-1.3); Blood Urea Nitrogen 27 mg/dL (9-20); Calcium 8.8 mg/dL (8.4-10.2); Carbon Dioxide 30 mmol/L (22-30); Chloride 99 mmol/L (98-107); Estimated CRCL calculation 62 ml/min; Estimated Glomerular Filt Rate 51; Glucose 162 mg/dL (65-110); Magnesium 2.0 mg/dL (1.6-2.3); Potassium 4.0 mmol/L (3.4-5.0); Sodium 136 mmol/L (137-145); Total Protein 7.0 g/dL (6.3-8.2)
[2025-02-14] MEDS: ceFAZolin 1 GM in SODIUM CHLORIDE 0.9% IV 50 ML 100 ML IVPB (05:28)
[2025-02-14] MEDS: INSULIN ASPART (*BKC) 100 UNITS/ML SUB-Q (08:59)
[2025-02-14] MEDS: ISOSORBIDE DINITRATE 5 MG TABLET PO (09:03)
[2025-02-14] MEDS: APIXABAN 5 MG TABLET PO (09:03)
[2025-02-14] MEDS: FUROSEMIDE 40 MG TABLET PO (09:03)
[2025-02-14] MEDS: LOSARTAN POTASSIUM 100 MG TABLET PO (09:03)
[2025-02-14] MEDS: POTASSIUM CHLORIDE 20 MEQ ER TABLET PO (09:03)
[2025-02-14] MEDS: GLIMEPIRIDE 2 MG TABLET PO (09:03)
--- NOTE | 2025-02-14 09:58 | P.PNCA_ITS ---
Progress Note: A&P Assessment and Plan (1) Atrial fibrillation with rapid ventricular response: Code(s): I48.91 - Unspecified atrial fibrillation Status: Acute Assessment and Plan: * noted to be in afib with rvr rate of 156 bpm on arrival to ER * this appears to be paroxysmal in nature based on device interrogation * patient was seen at OSH and recently started on amiodarone and Eliquis, but non-compliant with medications * he was started on IV cardizem and rate has improved. * will stop his cardizem drip and increase his home coreg dose from 6.25 mg BID to 12.5 mg BID * His Mag was 1.3 on admission and is currently being replaced and would replete to keep >2 * His potassium in wnl * TSH wnl * He has been reloaded with IV amiodarone and will resume PO amiodarone 200 mg daily * may benefit from OP EPS consult (2) Defibrillator discharge: Code(s): Z45.02 - Encounter for adjustment and management of automatic implantable cardiac defibrillator Status: Acute Assessment and Plan: * has single chamber biotronik ICD in place * appears he was defibrillated for afib with rvr * This is not the first time patient has been shocked for atrial fibrillation * as mentioned earlier may benefit from EPS consult and upgraded device on OP basis (3) HTN (hypertension): Qualifiers: Hypertension type: primary hypertension Qualified Code(s): I10 - Essential (primary) hypertension Code(s): I10 - Essential (primary) hypertension Status: Chronic Assessment and Plan: * Blood pressure with reasonable control at this time * continue coreg 12.5 mg BID and losartan 100 mg daily (4) HLD (hyperlipidemia): Qualifiers: Hyperlipidemia type: unspecified Qualified Code(s): E78.5 - Hyperlipidemia, unspecified Code(s): E78.5 - Hyperlipidemia, unspecified Status: Chronic Assessment and Plan: * continue atorvastatin 40 mg daily (5) DM2 (diabetes mellitus, type 2): Qualifiers: Diabetes mellitus ocean transportation intermediary insulin use: without ocean transportation intermediary use Diabetes mellitus complication status: without complication Qualified Code(s): E11.9 - Type 2 diabetes mellitus without complications Code(s): E11.9 - Type 2 diabetes mellitus without complications Status: Chronic Assessment and Plan: * glycemic control as per primary team (6) Cellulitis of right leg: Code(s): L03.115 - Cellulitis of right lower limb Status: Acute Assessment and Plan: * started on abx as per primary team * concern discoloration may be secondary to venous stasis changes as well (7) DVT (deep venous thrombosis): Code(s): I82.409 - Acute embolism and thrombosis of unspecified deep veins of unspecified lower extremity Status: Acute Assessment and Plan: * per chart review noted to have acute DVT of rt SFA/popliteal vein on recent visit to [facility] * continue Eliquis 5 mg BID for AC (8) ARIANA (obstructive sleep apnea): Code(s): G47.33 - Obstructive sleep apnea (adult) (pediatric) Status: Acute Assessment and Plan: * needs compliance with CPAP (9) Cardiomyopathy: Code(s): I42.9 - Cardiomyopathy, unspecified Status: Acute Assessment and Plan: * EF of 40% per echo 02/02/25 at [facility] * this is NICMP as had [facility] in 2023 with no CAD noted * continue coreg 12.5mg BID, losartan 100 mg daily and lasix 40 mg daily * monitor closely for any volume overload-stable at this time * has Biotronik ICD in place Plan Will transition from IV amiodarone to PO today Recommend OP EP evaluation Stable CV standpoint and will see as needed Subjective Date/time seen: 02/14/25 09:58 Interval history: Date of Sevice 02/14/25: Patient is sitting up in bed. Feeling well this am. Denies any chest pain or shortness of breath. No dizziness or palpitations. Review of Systems Review of Systems: All systems reviewed & are unremarkable except as noted in HPI and below Exam Const: General: comfortable and no acute distress Neck: Neck: No no JVD Carotids: no bruits Resp: Effort & Inspection: normal respiratory effort Auscultation: clear to auscultation bilaterally Cardio: Rate: regular rate Rhythm: abnormal rhythm Heart sounds: no gallops, no murmurs and no rubs Other: irreg irreg Neuro: Speech: normal speech Extrem: General: edema right Psych: Mental Status: mental status grossly normal Objective Data Vital Signs Vital Signs: Vital Signs - 24 hr 02/13/25 10:00 02/13/25 10:34 02/13/25 12:00 Temperature Pulse Rate 89 72 84 Respiratory Rate Blood Pressure 102/61 Pulse Oximetry Oxygen Delivery 02/13/25 12:00 02/13/25 12:03 02/13/25 14:00 Temperature 36.9 C Pulse Rate 71 77 82 Respiratory Rate 22 H Blood Pressure 99/53 L 99/53 L Pulse Oximetry 96 Oxygen Delivery 02/13/25 14:00 02/13/25 14:00 02/13/25 15:59 Temperature 36.8 C Pulse Rate 74 70 75 Respiratory Rate 14 Blood Pressure 101/70 101/70 131/87 Pulse Oximetry 98 Oxygen Delivery 02/13/25 16:00 02/13/25 16:00 02/13/25 18:00 Temperature 36.7 C Pulse Rate 84 89 79 Respiratory Rate 14 Blood Pressure 131/87 Pulse Oximetry 97 Oxygen Delivery 02/13/25 18:00 02/13/25 18:00 02/13/25 20:00 Temperature 37.1 C Pulse Rate 78 82 84 Respiratory Rate 20 Blood Pressure 137/74 137/74 122/80 Pulse Oximetry 96 97 Oxygen Delivery 02/13/25 20:00 02/13/25 20:00 02/13/25 20:00 Temperature Pulse Rate 84 84 82 Respiratory Rate 20 Blood Pressure 122/80 Pulse Oximetry 97 Oxygen Delivery Room Air 02/13/25 20:34 02/13/25 22:00 02/13/25 22:00 Temperature Pulse Rate 82 80 80 Respiratory Rate 20 Blood Pressure 117/74 Pulse Oximetry 98 Oxygen Delivery 02/13/25 22:00 02/14/25 00:00 02/14/25 00:00 Temperature 36.6 C Pulse Rate 80 74 84 Respiratory Rate 20 20 Blood Pressure 117/74 122/86 Pulse Oximetry 94 94 Oxygen Delivery Room Air 02/14/25 00:00 02/14/25 00:00 02/14/25 02:00 Temperature Pulse Rate 84 86 74 Respiratory Rate Blood Pressure 122/86 124/94 H Pulse Oximetry Oxygen Delivery 02/14/25 02:00 02/14/25 02:00 02/14/25 02:30 Temperature Pulse Rate 74 74 75 Respiratory Rate Blood Pressure 124/94 H Pulse Oximetry Oxygen Delivery 02/14/25 02:30 02/14/25 04:00 02/14/25 04:00 Temperature Pulse Rate 75 79 79 Respiratory Rate 20 Blood Pressure Pulse Oximetry 94 Oxygen Delivery Room Air 02/14/25 04:00 02/14/25 04:00 02/14/25 05:41 Temperature 36.5 C Pulse Rate 77 72 72 Respiratory Rate 20 Blood Pressure 130/76 130/76 Pulse Oximetry 97 Oxygen Delivery 02/14/25 05:41 02/14/25 05:43 02/14/25 07:55 Temperature 36.8 C Pulse Rate 72 74 77 Respiratory Rate 20 20 Blood Pressure 120/72 122/72 112/78 Pulse Oximetry 98 95 Oxygen Delivery 02/14/25 09:03 Temperature Pulse Rate 81 Respiratory Rate Blood Pressure Pulse Oximetry Oxygen Delivery Intake/Output Intake/Output: Intake & Output 02/11/25 02/12/25 02/13/25 02/14/25 23:59 23:59 23:59 23:59 Intake Total 1262.1 1327.4 958.5 Output Total 1325 1725 1150 Balance -62.9 -397.6 -191.5 Meds/Results Medications: Active Medications Generic Name Dose Route Start Last Admin Trade Name [facility] PRN Reason Stop Dose Admin Apixaban 5 mg 02/12/25 21:00 02/14/25 09:03 Apixaban 5 Mg Tablet PO 5 mg Q12H KITA Administration Atorvastatin Calcium 40 mg 02/12/25 21:00 02/13/25 20:34 Atorvastatin 40 Mg Tablet PO 40 mg HS KITA Administration Carvedilol 12.5 mg 02/13/25 21:00 02/14/25 09:03 Carvedilol 12.5 Mg Tablet PO 12.5 mg Q12HR KITA Administration Dextrose 12.5 gm 02/12/25 17:55 Dextrose 50% 25 Gm/50 Ml Syringe IV PUSH PRN PRN Hypoglycemia Protocol Furosemide 40 mg 02/13/25 09:00 02/14/25 09:03 Furosemide 40 Mg Tablet PO 40 mg DAILY KITA Administration Furosemide 20 mg 02/12/25 18:10 02/13/25 16:54 Furosemide 20 Mg Tablet PO 20 mg 1700 KITA Administration Glimepiride 2 mg 02/13/25 09:00 02/14/25 09:03 Glimepiride 2 Mg Tablet PO 2 mg DAILY KITA Administration Glucagon 1 mg 02/12/25 17:55 Glucagon For Inj 1 Mg Vial IM PRN PRN Hypoglycemia Protocol Glucose 15 gm 02/12/25 17:55 Glucose Oral Gel 15 Gm Of Glucse In 37.5 Gm Tube PO PRN PRN Hypoglycemia Protocol Hydralazine HCl 10 mg 02/13/25 09:00 02/14/25 09:03 Hydralazine 10 Mg Tablet PO 10 mg DAILY KITA Administration Dextrose 1,000 mls @ 100 mls/hr 02/12/25 17:55 Dextrose 5% 1,000 Ml IVPB PRN PRN Hypoglycemia Protocol Cefazolin Sodium 1 gm/ Sodium 50 mls @ 100 mls/hr 02/12/25 22:00 02/14/25 06:00 Chloride IVPB Infused Q8H KITA Infusion Amiodarone HCl/Dextrose 360 mg in 200 mls @ 16.667 mls/hr 02/13/25 16:10 02/14/25 05:43 Nexterone 360 Mg/D5w 200 Ml IV CONT 0.5 mg/min .Q12H KITA 16.67 mls/hr 0.5 MG/MIN Infusion Insulin Aspart 4 - 8 units 02/13/25 08:00 02/14/25 08:59 Insulin Aspart (*Bkc) 100 Units/Ml SUB-Q 8 units TIDWM KITA Administration Protocol Isosorbide Dinitrate 5 mg 02/13/25 09:00 02/14/25 09:03 Isosorbide Dinitrate 5 Mg Tablet PO 5 mg DAILY KITA Administration Losartan Potassium 100 mg 02/13/25 09:00 02/14/25 09:03 Losartan Potassium 100 Mg Tablet PO 100 mg DAILY KITA Administration Potassium Chloride 20 meq 02/13/25 09:00 02/14/25 09:03 Potassium Chloride 20 Meq Er Tablet PO 20 meq DAILY KITA Administration Radiology Results: ITS Impressions Chest X-Ray 02/12/25 10:39 Impression: Mild CHF Labs Labs: Laboratory Results - last 24 hr 02/13/25 02/13/25 02/13/25 11:21 16:37 19:58 WBC RBC Hgb Hct MCV MCH MCHC RDW Plt Count MPV Immature Gran % (Auto) Neut % (Auto) Lymph % (Auto) [place] % (Auto) Eos % (Auto) Baso % (Auto) Lymph # (Auto) [place] # (Auto) Eos # (Auto) Baso # (Auto) Abs Immat Gran (auto) Absolute Neuts (auto) Absolute Nucleated RBC Nucleated RBC % Sodium Potassium Chloride Carbon Dioxide Anion Gap BUN Creatinine Estim Creat Clear Calc Estimated GFR Glucose POC Capillary Glucose 121 H 129 H 120 H Calcium Magnesium Total Bilirubin AST ALT Alkaline Phosphatase Total Protein Albumin 02/14/25 02/14/25 02/14/25 03:54 06:59 07:16 WBC 5.4 RBC 4.13 L Hgb 12.0 L Hct 37.5 L MCV 90.8 MCH 29.1 MCHC 32.0 RDW 15.1 H Plt Count 146 L MPV 10.0 Immature Gran % (Auto) 0.0 Neut % (Auto) 60.5 Lymph % (Auto) 22.7 [place] % (Auto) 10.1 H Eos % (Auto) 6.1 H Baso % (Auto) 0.6 Lymph # (Auto) 1.23 [place] # (Auto) 0.6 Eos # (Auto) 0.3 Baso # (Auto) 0.0 Abs Immat Gran (auto) 0.00 Absolute Neuts (auto) 3.3 Absolute Nucleated RBC 0.000 Nucleated RBC % 0.0 Sodium 136 L Potassium 4.0 Chloride 99 Carbon Dioxide 30 Anion Gap 7 BUN 27 H Creatinine 1.39 H Estim Creat Clear Calc 62 Estimated GFR 51 L Glucose 162 H POC Capillary Glucose 99 414 H Calcium 8.8 Magnesium 2.0 Total Bilirubin 0.8 AST 25 ALT 21 Alkaline Phosphatase 55 Total Protein 7.0 Albumin 3.9
[2025-02-14] MEDS: AMIODARONE HCL 200 MG TABLET PO (10:57)
--- NOTE | 2025-02-14 14:25 | P.DS_ITS ---
DS: Admitting Diagnosis Discharge Date 02/14/25 Admitting Diagnosis Pop in the chest DS: Discharge Diagnosis Discharge Diagnosis (1) Atrial fibrillation with rapid ventricular response: Code(s): I48.91 - Unspecified atrial fibrillation Status: Acute DS: Summary Hospital Course Hospital Course: Primary Diagnosis:?Atrial fibrillation with rapid ventricular response (AFib with RVR) and ICD discharge Secondary Diagnoses: * Cellulitis of right lower extremity * Type 2 diabetes mellitus (DM2) * Hypertension (HTN) * Hyperlipidemia (HLD) * Obstructive sleep apnea (ARIANA) * Non-ischemic cardiomyopathy (EF 40%) * History of DVT (right SFA/popliteal vein) History of Present Illness 70-year-old male with a history of AFib, non-ischemic cardiomyopathy (EF 40%), Biotronik ICD, prior HI, DVT, DM2, ARIANA, HTN, and HLD presented via EMS after experiencing three shocks from his ICD. The event occurred while in a restroom, with prodromal dizziness but no loss of consciousness, chest pain, or palpitations. He was recently admitted to [facility] for cardiac issues and started on amiodarone and apixaban but admitted to poor medication compliance. Hospital Course Cardiac Events * ICD Interrogation:?Revealed AFib with RVR (rate 220 bpm, above device threshold of 214), resulting in three appropriate shocks. No evidence of VT/VF. * Initial Management: * IV metoprolol in ED (no effect), transitioned to IV diltiazem (Cardizem drip), which improved rate control. * Amiodarone held initially, then reloaded IV per cardiology and resumed PO. * Coreg (carvedilol) increased from 6.25 mg BID to 12.5 mg BID. * Magnesium repleted (admission level 1.3), potassium maintained WNL. * TSH WNL. * Telemetry monitoring throughout admission. * Cardiology Recommendations: * Outpatient electrophysiology (EP) consult for possible device upgrade and further arrhythmia management. * Emphasis on medication compliance at discharge. Cellulitis * Findings:?Erythema and warmth of right distal calf/ankle, symmetric +1 nonpitting edema, no asymmetric swelling. * Management:?Initiated cefazolin inpatient, discharged on cephalexin x 10 days. * DVT Consideration:?History of right SFA/popliteal DVT; continued on apixaban 5 mg BID for anticoagulation. Other Chronic Conditions * DM2:?Glucose on admission 142 mg/dL. Home regimen continued (glimepiride, metformin held if contrast needed). Hypoglycemia protocol and POC glucose monitoring in place. A1C ordered. * HTN:?Blood pressure stable on home regimen (losartan, hydralazine, isosorbide dinitrate, carvedilol). * HLD:?Continued atorvastatin 40 mg daily. * ARIANA:?Reinforced need for CPAP compliance. * Cardiomyopathy:?EF 40% (echo 02/02/25, [facility]), non-ischemic ([facility] 2023: no CAD). Continued guideline-directed medical therapy. Discharge Medications * Amiodarone 200 mg PO daily * Apixaban 5 mg PO BID * Atorvastatin 40 mg PO daily * Carvedilol 12.5 mg PO BID * Furosemide 40 mg PO daily * Glimepiride 2 mg PO daily * Hydralazine 10 mg PO daily * Isosorbide dinitrate 5 mg PO daily * Losartan 100 mg PO daily * Metformin 500 mg PO BID (hold if contrast needed) * Potassium chloride 20 mEq PO daily * Cephalexin x 10 days (for cellulitis) Discharge Instructions & Follow-up * Strict adherence to medication regimen, especially antiarrhythmics and anticoagulation. * Outpatient EP consult for arrhythmia and device management. * Continue CPAP for ARIANA. * Monitor for signs of infection, recurrent arrhythmia, or heart failure. * Follow up with primary care, cardiology, and as directed for diabetes management. Summary: Mr. Dominguez was admitted for AFib with RVR resulting in appropriate ICD shocks. He was stabilized with IV rate control, reloaded on amiodarone, and transitioned to oral therapy. Cellulitis of the right lower extremity was treated with antibiotics. He was discharged in stable condition with recommendations for strict medication compliance and outpatient EP evaluation. Time Spent with Patient Time attestation: Total time spent providing and/or coordinating discharge services: DS: Data Data Completed and Pending Labs on day of discharge: Labs from last 24 hours 02/14/25 02/14/25 02/14/25 11:14 07:16 06:59 WBC RBC Hgb Hct MCV MCH MCHC RDW Plt Count MPV Immature Gran % (Auto) Neut % (Auto) Lymph % (Auto) [place] % (Auto) Eos % (Auto) Baso % (Auto) Lymph # (Auto) [place] # (Auto) Eos # (Auto) Baso # (Auto) Abs Immat Gran (auto) Absolute Neuts (auto) Absolute Nucleated RBC Nucleated RBC % Sodium Potassium Chloride Carbon Dioxide Anion Gap BUN Creatinine Estim Creat Clear Calc Estimated GFR Glucose POC Capillary Glucose 78 414 H 99 Calcium Magnesium Total Bilirubin AST ALT Alkaline Phosphatase Total Protein Albumin 02/14/25 02/13/25 02/13/25 03:54 19:58 16:37 WBC 5.4 RBC 4.13 L Hgb 12.0 L Hct 37.5 L MCV 90.8 MCH 29.1 MCHC 32.0 RDW 15.1 H Plt Count 146 L MPV 10.0 Immature Gran % (Auto) 0.0 Neut % (Auto) 60.5 Lymph % (Auto) 22.7 [place] % (Auto) 10.1 H Eos % (Auto) 6.1 H Baso % (Auto) 0.6 Lymph # (Auto) 1.23 [place] # (Auto) 0.6 Eos # (Auto) 0.3 Baso # (Auto) 0.0 Abs Immat Gran (auto) 0.00 Absolute Neuts (auto) 3.3 Absolute Nucleated RBC 0.000 Nucleated RBC % 0.0 Sodium 136 L Potassium 4.0 Chloride 99 Carbon Dioxide 30 Anion Gap 7 BUN 27 H Creatinine 1.39 H Estim Creat Clear Calc 62 Estimated GFR 51 L Glucose 162 H POC Capillary Glucose 120 H 129 H Calcium 8.8 Magnesium 2.0 Total Bilirubin 0.8 AST 25 ALT 21 Alkaline Phosphatase 55 Total Protein 7.0 Albumin 3.9 Discharge Plan Discharge Attending physician on discharge: Monse Crocker Consulting providers: Chao Calzada; Franklin Meraz Discharging Clinician: Monse Crocker Anticipated Discharge Date/Time: 02/14/25 14:22 Patient Disposition: Home Activity: as tolerated Diet: as tolerated, heart healthy and diabetic Patient Instructions: Antibiotic Form Patient Language: Romanian Stand Alone Forms: General Discharge Information Follow-up/Referrals: Franklin Meraz MD [Physician, Cardiology] Referral Note: F/u with cardiology as instructed Ricarda,Franklin Anthony MD [Primary Care Provider] Referral Note: F/u with PCP in 3-5 days Discharge Medications: New carvedilol [Coreg] 12.5 mg Tablet 12.5 mg PO Q12HR 30 Days Qty: 60 1RF cephalexin 500 mg capsule 500 mg PO Q8H 10 Days Qty: 30 0RF Continued amiodarone 200 mg tablet 200 mg PO Q24H Eliquis 5 mg tablet 5 mg PO Q12H atorvastatin 40 mg tablet 40 mg PO HS furosemide 20 mg tablet 20 mg PO 1700 furosemide 40 mg tablet 40 mg PO DAILY glimepiride 2 mg tablet 2 mg PO DAILY hydralazine 10 mg tablet 10 mg PO DAILY isosorbide dinitrate 5 mg tablet 5 mg PO DAILY losartan 100 mg tablet 100 mg PO DAILY metformin 500 mg tablet 500 mg PO BID potassium chloride 20 mEq tablet,ER particles/crystals 20 meq PO DAILY Discontinued carvedilol 6.25 mg tablet 6.25 mg PO Q12H Date of admission: 02/13/25 14:07 Primary Care Provider: Ricarda,Franklin Anthony Admitting Provider: Monse Crocker Attending physician on admission: Monse Crocker Condition: Serious
== END 2025-02-14 14:45 | disposition home or self-care (01) | DRG 309 ==
LOC: ANHED 14:13 → ANHIMU 16:19
PROVIDERS: Student in an Organized Health Care Education/Training Program; Admitting Provider Internal Medicine; Emergency Provider Emergency Medicine; PCP Internal Medicine; Visit Provider Internal Medicine
DX: I48.0 Paroxysmal atrial fibrillation (principal); I82.431 Acute embolism and thrombosis of right popliteal vein; L03.115 Cellulitis of right lower limb; Z68.41 Body mass index [BMI] 40.0-44.9, adult; I42.8 Other cardiomyopathies; I11.9 Hypertensive heart disease without heart failure; I50.9 Heart failure, unspecified; E11.9 Type 2 diabetes mellitus without complications; G47.30 Sleep apnea, unspecified; E78.5 Hyperlipidemia, unspecified; I87.8 Other specified disorders of veins; E66.9 Obesity, unspecified; F12.90 Cannabis use, unspecified, uncomplicated; I25.2 Old myocardial infarction; Z79.01 Long term (current) use of anticoagulants; Z79.84 Long term (current) use of oral hypoglycemic drugs; Z86.718 Personal history of other venous thrombosis and embolism; Z95.810 Presence of automatic (implantable) cardiac defibrillator; Z91.148 Patient's other noncompliance with medication regimen for other reason
CPT/HCPCS: 36415; 71045; 80048; 80053; 82948; 83036; 83735; 83880; 84439; 84443; 84480; 85025; 85610; 85730; 93005; 96361; 96365; 96366; 96367; 96375; 99285; A9270; G0378; J0283; J0616; J0690; J1163; J1815; J1938; J3475; J7120